=== PATIENT | male | born 1960 | race Caucasian/White ===

== ENCOUNTER → 2017-02-10 | Outpatient (REF) | payer BC | LOC: M LAB REF 12:17 | PROVIDERS: ATTEND Family Medicine | DX: R74.8 Abnormal levels of other serum enzymes (principal) ==

== ENCOUNTER → 2018-03-22 | Outpatient (CLI) | payer BC | LOC: M RAD 07:06 | DX: G89.29 Other chronic pain (principal); M12.812 Other specific arthropathies, not elsewhere classified, left shoulder; S46.812A Strain of other muscles, fascia and tendons at shoulder and upper arm level, left arm, initial encounter; X58.XXXA Exposure to other specified factors, initial encounter; Y92.9 Unspecified place or not applicable | CPT/HCPCS: 73221 ==

== ENCOUNTER → 2019-06-29 | Outpatient (REF) | payer BC ==
[2019-07-03 00:07] LABS: Lyme Disease IgG/IgM Antibodie <0.91 ISR (0.00-0.90); Lyme Disease IgM Ab Quantitati <0.80 index (0.00-0.79)
== END ==
LOC: M LAB REF 17:12
PROVIDERS: ATTEND Registered Nurse
DX: H60.8X2 Other otitis externa, left ear (principal); M79.10 Myalgia, unspecified site

== ENCOUNTER → 2020-10-08 | Outpatient (REF) | payer BC ==
[2020-10-10 08:09] LABS: LDL DIRECT 78 mg/dL (0-99)
== END ==
LOC: M LAB REF 17:06
PROVIDERS: ATTEND Family Medicine
DX: E78.5 Hyperlipidemia, unspecified (principal)

== ENCOUNTER → 2022-01-11 | Outpatient (REF) | payer BC | LOC: M LAB REF 16:05 | PROVIDERS: ATTEND Family Medicine | DX: E78.5 Hyperlipidemia, unspecified (principal) ==

== ENCOUNTER → 2022-01-21 | Outpatient (CLI) | payer BC | LOC: M PLAIMG 13:45 | PROVIDERS: ATTEND Physician Assistant Surgical | DX: M67.812 Other specified disorders of synovium, left shoulder (principal); M25.512 Pain in left shoulder ==

== ENCOUNTER → 2022-08-18 | Outpatient (REF) | payer BC | LOC: M LAB REF 16:40 | PROVIDERS: ATTEND Family Medicine | DX: E78.5 Hyperlipidemia, unspecified (principal) ==

== ENCOUNTER → 2022-11-01 | Outpatient (CLI) | payer BC ==
[~2022-11-01] MED LIST: ASPI81TA26 PO; BUDE0.5S6; DOXY100C3; FAMO1TAB11 PO; FURO20TA2 PO; METF500T13 PO; MULTTAB61 PO; OMEP40CA5 PO; SEMA1PEN2 SQ; SIMV20TA22 PO; SUCR1SS; TRES1INJ2 PO
== END ==
LOC: M LABSMTC 07:47
PROVIDERS: ATTEND Anesthesiology
DX: Z01.812 Encounter for preprocedural laboratory examination (principal)

== ENCOUNTER 2022-11-04 08:40 | Day surgery (SDC) | payer BC ==
[~2022-11-04] VITALS: Ht 180.3 cm; Wt 135.1 kg
[~2022-11-04 08:40] MED LIST changes: +NS 1,000 ML IV ONE
[2022-11-04] MEDS ORDERED: LIDOCAINE 2% 100MG/5ML SDV (FOR ANES.) As Ordered ONE (09:47)
[2022-11-04] MEDS ORDERED: propofoL 200 MG/20 ML VIAL As Ordered ONE ×2 (09:47→10:00)
[2022-11-04 10:20] VITALS: BP 162/77
== END 2022-11-04 10:27 | disposition home or self-care (01) ==
LOC: M OPP 08:40
PROVIDERS: ATTEND Surgery
DX: Z12.11 Encounter for screening for malignant neoplasm of colon (principal); D12.6 Benign neoplasm of colon, unspecified; K64.2 Third degree hemorrhoids; K57.30 Diverticulosis of large intestine without perforation or abscess without bleeding; K31.89 Other diseases of stomach and duodenum; E78.00 Pure hypercholesterolemia, unspecified; E11.9 Type 2 diabetes mellitus without complications; G47.33 Obstructive sleep apnea (adult) (pediatric); Z99.89 Dependence on other enabling machines and devices; Z79.01 Long term (current) use of anticoagulants; Z79.02 Long term (current) use of antithrombotics/antiplatelets; Z79.1 Long term (current) use of non-steroidal anti-inflammatories (NSAID); Z79.4 Long term (current) use of insulin; Z79.82 Long term (current) use of aspirin

== ENCOUNTER → 2023-12-20 | Outpatient (REF) | payer BC ==
[~2023-12-20] MED LIST changes: -NS 1,000 ML IV ONE
[2023-12-20 14:55] LABS: C REACTIVE PROTEIN QUANTITATIV < 0.40 MG/DL (<1.0)
[2023-12-20 14:59] LABS: RHEUMATOID FACTOR QUANT 6.2 IU/ML (<14)
[2023-12-21 14:10] LABS: ANTINUCLEAR ANTIBODIES DIRECT Negative (Negative)
== END ==
LOC: M LAB REF 12:59
PROVIDERS: ATTEND Family Medicine
DX: R60.9 Edema, unspecified (principal)

== ENCOUNTER → 2024-04-02 | Outpatient (REF) | payer BC ==
[2024-04-02 13:17] LABS: PSA SCREENING 0.51 NG/ML (< 4.00)
== END ==
LOC: M LAB REF 12:21
PROVIDERS: ATTEND Family Medicine
DX: E29.1 Testicular hypofunction (principal)
CPT/HCPCS: 84403; G0103

== ENCOUNTER → 2024-06-22 | Outpatient (CLI) | payer BC | LOC: M RAD 14:40 | PROVIDERS: ATTEND Physician Assistant | DX: I73.9 Peripheral vascular disease, unspecified (principal); N52.9 Male erectile dysfunction, unspecified ==

== ENCOUNTER → 2024-06-26 | Outpatient (CLI) | payer BC | LOC: M RAD 11:01 | PROVIDERS: ATTEND Physician Assistant | DX: I73.9 Peripheral vascular disease, unspecified (principal) ==

== ENCOUNTER → 2024-10-09 | Outpatient (CLI) | payer BC ==
[2024-10-09 09:22] LABS: PROSTATIC SPECIFIC AG MONITOR 0.51 NG/ML (< 4.00)
== END ==
LOC: M LAB 07:10
PROVIDERS: ATTEND Physician Assistant
DX: E29.1 Testicular hypofunction (principal)

== ENCOUNTER → 2025-03-29 | Outpatient (REF) | payer BC | LOC: M LAB REF 13:07 | PROVIDERS: ATTEND Family Medicine | DX: E29.1 Testicular hypofunction (principal) | CPT/HCPCS: 84403; G0103 ==

== ENCOUNTER → 2025-06-20 | Outpatient (REF) | payer BC | LOC: M LAB REF 11:01 | PROVIDERS: ATTEND Family Medicine | DX: R19.7 Diarrhea, unspecified (principal) ==